=== PATIENT | female | born 1965 | race Hispanic/Latino ===

== ENCOUNTER → 2019-05-27 14:01 | Outpatient (CLI) | payer MEDICARE, SELFPAY ==
--- NOTE | 2019-05-27 | DI.MRI.S_ITS ---
PROCEDURE: MR KNEE RT WO CON INDICATIONS: Unilateral primary osteoarthritis, right knee TECHNIQUE: Noncontrast sagittal PD fast spin echo and T2 fast spin echo with fat saturation, sagittal 3-D FLASH with fat saturation; coronal T1 spin echo and PD fast spin echo with fat saturation, and axial PD fast spin echo with fat saturation through the knee. COMPARISON: None. FINDINGS: Image quality: Evaluation limited by body habitus and motion artifact. Menisci: There is moderate degenerative tearing in the body and anterior horn of the medial meniscus with slight peripheral extrusion of the meniscus. The meniscal root ligaments appear grossly intact without definite rupture. Mild degenerative tearing also demonstrated in the body of the lateral meniscus. Cruciate ligaments: The anterior and posterior cruciate ligaments appear intact. Medial structures: The medial collateral ligament appears intact. The semimembranosus tendon insertions and meniscocapsular junction appear intact. Visualized portions of the pes anserinus tendons appear intact without associated bursal fluid collections. Lateral structures: The lateral collateral ligament, long and short heads of the biceps femoris tendon appear intact. The popliteus tendon appears intact. Iliotibial band appears normal. Anterior structures: The quadriceps and patellar tendons appear intact. Patellar alignment is normal. No femoral trochlear dysplasia or ventral trochlear prominence. Bones and cartilage: No bone marrow contusions or fractures. There is tricompartmental osteophytosis. Evaluation of the cartilage is limited by motion artifact and body habitus. Moderate cartilage thinning is demonstrated in the medial compartment with chondral fissuring and associated subchondral edema. In the lateral compartment, there is mild to moderate cartilage thinning with chondral fissuring and minimal subchondral edema. In the patellofemoral compartment, and there is mild superficial chondral irregularity. Joint space: There is a small effusion. Small foci of internal filling defects within the joint fluid are compatible with synovitis or small joint bodies. No Hassan's cyst. Normal appearing synovial plicae are incidentally noted. IMPRESSION: 1. Degenerative tearing of the medial and lateral menisci as described. 2. Tricompartmental osteoarthritic changes including moderate degeneration within the medial compartment. 3. Small joint effusion with internal filling defects consistent with synovitis or small joint bodies. Dictated by: Evelio Javed M.D. on 05/27/2019 at 16:33 Approved by: Evelio Javed M.D. on 05/27/2019 at 16:38
== END ==
PROVIDERS: Referring Provider Orthopaedic Surgery; Visit Provider Orthopaedic Surgery
DX: M17.11 Unilateral primary osteoarthritis, right knee (principal); M23.211 Derangement of anterior horn of medial meniscus due to old tear or injury, right knee; M23.261 Derangement of other lateral meniscus due to old tear or injury, right knee; M25.461 Effusion, right knee
CPT/HCPCS: 73721